=== PATIENT | male | born 1935 | race Caucasian/White ===

== ENCOUNTER 2018-09-29 20:31 | Inpatient (IN) | payer MEDICARE, OTHER ==
[~2018-09-29] VITALS: Ht 172.7 cm; Wt 79.5 kg
[2018-09-29 20:34] VITALS: Ht 172.7 cm; Wt 79.5 kg
[2018-09-29] MEDS ORDERED: SOD CHLORIDE 0.9% 1,000 ML IV STA (21:05)
--- NOTE | 2018-09-29 21:56 | ERD ---
ER Documentation Chief Complaint Chief Complaint BIB RA89 for abd swelling today, hx of metastatic ca HPI 82-year-old man brought in by family members for generalized weakness, dehydration, increased abdominal swelling times 2-3 days. He has a history of stage IV metastatic colon CA and has chronic daily abdominal pain and has had recent nausea and worsening abdominal swelling. Patient has had no blood per rectum or melena, no fevers or chills, no complaints of chest pain or shortness of breath. ROS All systems reviewed and are negative except as per history of present illness. Allergies Allergies: Coded Allergies: No Known Allergy (Unverified , 09/29/18) PMhx/Soc Metastatic colon carcinoma History of Surgery: No Anesthesia Reaction: No Hx Neurological Disorder: No Hx Respiratory Disorders: No Hx Cardiac Disorders: Yes (HTN, cholesterol, atrial fibrillation on xarelto) Hx Miscellaneous Medical Probl: Yes (hypothyroidism, prostate, colon CA w mets to liver) Hx Alcohol Use: No Hx Substance Use: No Hx Tobacco Use: No Smoking Status: Never smoker FmHx Family History: No diabetes Physical Exam Vitals Vital Signs Date Temp Pulse Resp B/P (MAP) Pulse Ox O2 O2 Flow FiO2 Time Delivery Rate 09/29/18 89 25 124/83 99 Nasal 3.0 22:10 (97) Cannula 09/29/18 Nasal 3 21:40 Cannula 09/29/18 97.4 100 24 142/80 94 20:34 (100) Physical Exam Const: Elderly, chronically debilitated man, appears dehydrated, afebrile HEENT: Dry mucous membranes, pink conjunctive, no cervical spine deformity, no neck rigidity Resp: Clear to auscultation bilaterally Cardio: Regular rate and rhythm, no murmurs Abd: Soft, protuberant, mid abdominal mass palpated consistent with progressive colon cancer, no guarding Skin: No petechiae or rashes Back: No midline or flank tenderness Ext: No cyanosis, or edema Neur: Awake and alert x1, moving all extremities, no focal deficits or facial asymmetry Psych: Normal Mood and Affect Result Diagram: 09/29/18210909/29/182109 Results 24 hrs Laboratory Tests Test 09/29/18 21:10 09/29/18 22:00 White Blood Count 14.3 10^3/ul Red Blood Count 4.26 10^6/ul Hemoglobin 11.9 g/dl Hematocrit 36.1 % Mean Corpuscular Volume 84.7 fl Mean Corpuscular Hemoglobin 27.9 pg Mean Corpuscular Hemoglobin Concent 33.0 g/dl Red Cell Distribution Width 14.6 % Platelet Count 496 10^3/UL Mean Platelet Volume 8.6 fl Immature Granulocytes % 0.500 % Neutrophils % 76.7 % Lymphocytes % 12.5 % Monocytes % 9.2 % Eosinophils % 1.0 % Basophils % 0.1 % Nucleated Red Blood Cells % 0.0 /100WBC Immature Granulocytes # 0.070 10^3/ul Neutrophils # 11.0 10^3/ul Lymphocytes # 1.8 10^3/ul Monocytes # 1.3 10^3/ul Eosinophils # 0.2 10^3/ul Basophils # 0.0 10^3/ul Nucleated Red Blood Cells # 0.0 10^3/ul Prothrombin Time 14.3 Sec Prothrombin Time Ratio 1.1 INR International Normalized Ratio 1.09 Activated Partial Thromboplast Time 39.7 Sec Sodium Level 140 mmol/L Potassium Level 4.7 mmol/L Chloride Level 104 mmol/L Carbon Dioxide Level 22 mmol/L Anion Gap 14 Blood Urea Nitrogen 43 mg/dl Creatinine 2.32 mg/dl Est Glomerular Filtrat Rate mL/min mL/min Glucose Level 114 mg/dl Calcium Level 9.3 mg/dl Total Bilirubin 0.1 mg/dl Direct Bilirubin 0.00 mg/dl Indirect Bilirubin 0.1 mg/dl Aspartate Amino Transf (AST/SGOT) 30 IU/L Alanine Aminotransferase (ALT/SGPT) 7 IU/L Alkaline Phosphatase 126 IU/L Troponin I 0.105 ng/ml Total Protein 6.8 g/dl Albumin 3.5 g/dl Globulin 3.30 g/dl Albumin/Globulin Ratio 1.06 Lipase 171 U/L Urine Color YELLOW Urine Clarity SLIGHTLY CLOUDY Urine pH 5.0 Urine Specific Russell 1.017 Urine Ketones NEGATIVE mg/dL Urine Nitrite NEGATIVE mg/dL Urine Bilirubin NEGATIVE mg/dL Urine Urobilinogen NEGATIVE mg/dL Urine Leukocyte Esterase NEGATIVE Michell/ul Urine Microscopic RBC 16 /HPF Urine Microscopic WBC 4 /HPF Urine Amorphous Crystals FEW /HPF Urine Bacteria FEW /HPF Urine Hemoglobin 2+ mg/dL Urine Glucose NEGATIVE mg/dL Urine Total Protein 2+ mg/dl Current Medications Medications Dose Sig/Chava Start Time Status Last (Trade) Ordered Route PRN Stop Time Admin Dose Reason Admin Sodium 1,000 ml @ Q1H STAT 09/29/18 DC 09/29/18 Chloride 1,000 mls/hr IV 21:05 21:20 09/29/18 22:04 Procedures/MDM IV line was established patient was placed on awake overnight monitor rhythm strip re vealed a sinus rhythm at about 90 bpm with upright P and T waves. Patient was afebrile I administered 1 L normal saline IV for dehydration. EKG performed, read by me revealed a normal sinus rhythm at 90 bpm, left axis deviation, PACs, narrow QRS complex, no concerning ST elevations or depression noted CT scan of the abdomen and pelvis without contrast was performed,sal, history of arrhythmia, history of COPD, history of heart failure, history of depression, schizoaffective disorder, anxiety disorder. CBC was unremarkable, electrolytes reveal acute kidney injury and dehydration with a BUN/creatinine 43/2.3, liver function tests normal, troponin negative, urinalysis negative for infection. Patient will be admitted to [facility] for continued hydration and medical management. Departure Diagnosis: Primary Impression: Colon carcinoma metastatic to liver Additional Impressions: Dehydration Weakness Acute kidney injury Ascites Ascites type: malignant Qualified Codes: R18.0 - Malignant ascites Condition: PANKAJ Kruse MD Sep 29, 2018 21:56
[2018-09-29] MEDS ORDERED: MAGNESIUM HYDROXIDE 30ML CUP PO STA (23:26)
[2018-09-29] MEDS ORDERED: HYDROCODONE/APAP (5/325) TAB PO PRN ×2 (23:30)
[2018-09-29] MEDS ORDERED: ONDANSETRON 4 MG INJ IV PRN (23:30)
[2018-09-29] MEDS ORDERED: NACL 0.9% 3 ML SYG IV SCH (23:30)
[2018-09-29] MEDS ORDERED: ACETAMINOPHEN 325 MG TAB PO PRN (23:30)
--- NOTE | 2018-09-29 23:30 | HP ---
Date/Time of Note Date/Time of Note DATE: 09/29/18 TIME: 23:30 Assessment/Plan VTE Prophylaxis Pharmacological prophylaxis: heparin Lines/Catheters IV Catheter Type (from Nrs): Peripheral IV Assessment/Plan Assessment/Plan 1. Metastatic colon cancer, with CT showing peritoneal carcinomatosis, metastases to the liver and pulmonary nodules as well as large ascites -Per ER physician, family interested in stopping chemo -Palliative care consult -Hospice eval -Patient has been made DNR/DNI 2. Abdominal distention/pain: See above -We will talk to IR if therapeutic paracentesis can be done. Will send sample to workup for SBP. If you #7 -Pain management 3. RAMSES versus CKD: CT shows hydroureteronephrosis, likely mass-effect on the ureter. Patient also with a history of enlarged prostate -Rey was placed with only 30-50 cc of urine output, then it was obstructed. Multiple attempts was unsuccessful. Bladder scan shows about 600 cc of urine -Urology consult 4. Obstructive uropathy: See #3 5. Hypothyroidism: Continue home med 6. Atrial fibrillation: On Xarelto 7. SIRS: With the leukocytosis and tachycardia: Likely reactive -UA negative -Chest x-ray and urine culture. If paracentesis is going to be done, will workup for SBP HPI/ROS Admit Date/Time Admit Date/Time Hx of Present Illness This is a 82-year-old male with a history of metastatic colon, A. fib on Xarelto, hypothyroidism, BPH who presented to ER complaining of abdominal pain/distention and generalized weakness. 2 of the patient's daughter was at the bedside who provided history as patient is not able to provide any history. They said he was diagnosed with cancer in 2017 and the last time he received oral chemo was about 6 months ago. She said she stopped giving him the meds after 3 doses because of the side effects. Patient has only been taking Ensure for the past 1 month, which daughter said was because of poor appetite. The last 4 days, a nurse was coming to his house to give him IV fluid. Daughter said she noticed that over the past 4 days his belly has been progressively more distended after he was started on IV fluid. Previously she said his belly was flat. When he presented to ER, vitals stable. Lab shows a WBC of 14,000, creatinine 2.3, BUN 43, hemoglobin almost 12. CT abdomen/pelvis shows the followin. The combination of findings most likely reflects stage IV metastatic colon cancer with multiple hepatic masses, visualized pulmonary nodules, peritoneal carcinomatosis and a large amount of malignant ascites. Consider consultation for paracentesis with cytologic analysis. 2. Partial right colectomy and anastomosis without bowel obstruction, diver ticular disease and constipation of the remaining colon is present. 3. In addition, there is mesenteric and sheryl hepatis lymphadenopathy that is presumably metastatic. 4. Right-sided hydroureteronephrosis without calculus is likely related to extrinsic impression upon the ureter by neoplastic disease. 5. Atherosclerotic calcification of the aorta and iliac systems is incidentally noted. 6. Diffuse degenerative changes of the thoracolumbar spine with anterolisthesis and central stenosis at L4-5 but no evidence of osseous metastasis. I discussed the CT findings and the patient overall poor prognosis. Family wants patient to be DNR/DNI and that they are interested in talking to hospice people. PMH/Family/Social Past Medical History Coded Allergies: No Known Allergy (Unverified , 09/29/18) Social History Smoking Status: Never smoker Exam/Review of Systems Vital Signs Vitals Vital Signs Date Temp Pulse Resp B/P (MAP) Pulse Ox O2 O2 Flow FiO2 Time Delivery Rate 09/29/18 91 20 117/69 96 Room Air 23:23 (85) 09/29/18 3.0 22:10 09/29/18 97.4 20:34 Exam Exam Constitutional: other (no acute distress) Head: normocephalic Respiratory: other (slight decreased at bases) Cardiovascular: regular rate and rhythm Gastrointestinal: soft Extremities: normal pulses PMH/Family/Social Past Medical History Medical History: other (see hpi) Coded Allergies: No Known Drug Allergy (Verified Allergy, Unknown, 05/26/16) Past Surgical History Past Surgical Hx: other (see hpi) Family History Significant Family History: no pertinent family hx Social History Alcohol Use: other Smoking Status: Unknown if ever smoked Drug Use: other Results Result Diagram: 09/29/18210909/29/182109 Results 24 hrs Laboratory Tests Test 09/29/18 21:10 09/29/18 22:00 White Blood Count 14.3 H Red Blood Count 4.26 L Hemoglobin 11.9 L Hematocrit 36.1 L Mean Corpuscular Volume 84.7 Mean Corpuscular Hemoglobin 27.9 L Mean Corpuscular Hemoglobin Concent 33.0 Red Cell Distribution Width 14.6 H Platelet Count 496 H Mean Platelet Volume 8.6 Immature Granulocytes % 0.500 H Neutrophils % 76.7 Lymphocytes % 12.5 L Monocytes % 9.2 Eosinophils % 1.0 Basophils % 0.1 Nucleated Red Blood Cells % 0.0 Immature Granulocytes # 0.070 H Neutrophils # 11.0 H Lymphocytes # 1.8 Monocytes # 1.3 H Eosinophils # 0.2 Basophils # 0.0 Nucleated Red Blood Cells # 0.0 Prothrombin Time 14.3 Prothrombin Time Ratio 1.1 INR International Normalized Ratio 1.09 Activated Partial Thromboplast Time 39.7 H Sodium Level 140 Potassium Level 4.7 Chloride Level 104 Carbon Dioxide Level 22 Anion Gap 14 H Blood Urea Nitrogen 43 H Creatinine 2.32 H Est Glomerular Filtrat Rate mL/min Glucose Level 114 Calcium Level 9.3 Total Bilirubin 0.1 L Direct Bilirubin 0.00 Indirect Bilirubin 0.1 Aspartate Amino Transf (AST/SGOT) 30 Alanine Aminotransferase (ALT/SGPT) 7 L Alkaline Phosphatase 126 H Troponin I 0.105 Total Protein 6.8 Albumin 3.5 Globulin 3.30 H Albumin/Globulin Ratio 1.06 Lipase 171 Urine Color YELLOW Urine Clarity SLIGHTLY CLOUDY A Urine pH 5.0 Urine Specific Rozel 1.017 Urine Ketones NEGATIVE Urine Nitrite NEGATIVE Urine Bilirubin NEGATIVE Urine Urobilinogen NEGATIVE Urine Leukocyte Esterase NEGATIVE Urine Microscopic RBC 16 H Urine Microscopic WBC 4 Urine Amorphous Crystals FEW A Urine Bacteria FEW A Urine Hemoglobin 2+ H Urine Glucose NEGATIVE Urine Total Protein 2+ H ANA PLAZA MD Sep 29, 2018 23:30
[2018-09-30] VITALS: BP 118/68; PULSE 92; RESP 18
[2018-09-30] MEDS: DEXTROSE 5%-0.45% NACL 1,000 ML IV SCH ×2 (00:30→13:30)
[2018-09-30] MEDS ORDERED: HALOPERIDOL 5 MG INJ IM ONE ×2 (01:00→03:00)
[2018-09-30] MEDS ORDERED: LORAZEPAM 2 MG INJ IV ONE (01:00)
[2018-09-30] MEDS ORDERED: LORAZEPAM 4 MG/ML VIAL IV ONE (01:00)
[2018-09-30] MEDS ORDERED: HYDROmorphONE 1 MG/ML SYG IV ONE (02:00)
[2018-09-30] MEDS: ALBUTEROL/IPRATROPIUM (NEB) 3 ML AMP HHN PRN ×2 (04:43→22:37)
[2018-09-30] MEDS ORDERED: METO-429 PO (07:58)
[2018-09-30] MEDS ORDERED: AMLO-218 PO (07:58)
[2018-09-30] MEDS ORDERED: LOSA100T15 PO (07:58)
[2018-09-30 08:29] VITALS: BP 130/89; PULSE 97; RESP 18
[2018-09-30] MEDS: MAGNESIUM HYDROXIDE 30ML CUP PO SCH (09:00)
--- NOTE | 2018-09-30 12:13 | CONS ---
DATE OF ADMISSION: 09/29/2018 DATE OF CONSULTATION: TYPE OF CONSULTATION: Nephrology. REASON FOR CONSULTATION: Acute kidney injury. PHYSICIAN REQUESTING CONSULT: Brian Plaza MD HISTORY OF PRESENT ILLNESS: This is an 82-year-old male with a past medical history of metastatic co janice cancer, history of AFib on Xarelto, history of BPH, presented to [facility] emergency ro om with complaints of abdominal pain, distention and generalized weakness. The patient's daughter pr ovided history, stated the patient was diagnosed with cancer in 2017. He last received chemotherapy approximately 6 months ago. The patient stopped taking chemotherapy secondary to side effects. The patient states that he has had poor appetite over the last several days and increasing abdominal dist ention. As a result, he came to the emergency room. Upon arrival, the patient had laboratory data w hich showed white count of 14,000, a BUN 43, creatinine 2.3, hemoglobin 12. CT abdomen and pelvis wa s performed in the emergency room which showed findings of stage IV metastatic cancer, partial colect perry with anastomosis. No bowel obstruction. The patient was also noted to have degenerative changes of the spine, right-sided hydroureteronephrosis without calculus possibly from extrinsic compression upon the ureter by inflammatory disease. In the emergency room, the patient was placed on IV fluids and admitted to med-surg. In terms of patient's renal history, the patient's family says he has no prior history of kidney dise ase. The patient is also noted to have decreased urinary output. There is no hemoptysis, hematemesi s, hematochezia. PAST MEDICAL HISTORY: As stated above, history of metastatic colon cancer, history of AFib, history of BPH, history of hypothyroidism. PAST SURGICAL HISTORY: Status post partial colectomy. FAMILY HISTORY: No family history of kidney disease. ALLERGIES: NONE. MEDICATIONS: Have been reviewed. REVIEW OF SYSTEMS: Unable to do adequate review of systems as the patient is altered. Pertinent pos itives as obtained by reviewing medical records, speaking to hospital staff, stated in HPI, otherwise negative. PHYSICAL EXAMINATION: VITAL SIGNS: Blood pressure is 118/58, respiration 18, pulse 92, temperature 98.3. HEENT: Head is normocephalic. NECK: Supple. HEART: Regular rate. LUNGS: Show diminished breath sounds at the base. ABDOMEN: Soft, distended, positive fluid wave. EXTREMITIES: Negative for clubbing, cyanosis. No edema. DERMATOLOGIC: No rashes. MUSCULOSKELETAL: No joint effusion. NEUROLOGIC: Limited exam due to lack of patient's cooperation. LABORATORY DATA: The patient's urinalysis shows positive hematuria, no pyuria. Sodium 141, BUN 39, creatinine 2.23. White count 14.9, hemoglobin 9.7, platelet count 46. IMAGING STUDIES: Have been reviewed. ASSESSMENT AND PLAN: This is an 82-year-old male who presents with: 1. Nonoliguric acute kidney injury with unknown baseline creatinine. Etiology is likely multifactor ial secondary to obstructive uropathy due to metastatic disease. The patient's CT scan shows evidenc e of right hydroureter, possible volume depletion, hemodynamics, possible tubular injury. Plan at th is point is to check a renal ultrasound to further evaluate for possible hydronephrosis. We will con tinue the patient on IV hydration. We will repeat urinalysis, check urine electrolytes. Monitor str ict I's and O's. I agree with getting urology consult for Rey catheter placement and further evalu ation of hydronephrosis. Otherwise, continue supportive care, renally dose all meds, avoid nephrotox ins. 2. Obstructive uropathy with possible right-sided hydroureteronephrosis. Etiology is likely from un derlying malignancy. We will continue to monitor. Follow up serologies. 3. Anemia. Monitor hemoglobin and hematocrit levels. 4. Mineral bone disorder. Monitor calcium and phosphorus levels. 5. Abdominal pain and distention, likely secondary to ascites. Consider a therapeutic paracentesis. 6. Metastatic colon cancer. Continue to monitor. Defer to primary team. Consider hospice care. 7. Hypothyroidism. Continue Synthroid. 8. Atrial fibrillation. Continue medical management. 9. Systemic inflammatory response syndrome, rule out sepsis. Continue follow up cultures. Consider empiric antibiotics. Rule out spontaneous bacterial peritonitis. Thank you, Dr. Plaaz, for this interesting consult. It will be a pleasure to follow patient with you throughout the hospital course. Dictated By: LEI HARRY/LARRY Conf#: [id number] DID#: [id number] CC: KENISHA TORIBIO; BRIAN PLAZA MD;*End*
--- NOTE | 2018-09-30 12:46 | CONS ---
Date/Time of Note Date/Time of Note DATE: 09/30/18 TIME: : Assessment/Plan Assessment/Plan Chief Complaint/Hosp Course 82-year-old male has a history of metastatic colon, atrial fibrillation on Xarelto, hypothyroidism presented to ER complaining of abdominal pain/distention and generalized weakness. The patient's family were at the bedside and provided history as patient is not able to provide any history. They said he was diagnosed with colon cancer in 2017 and the last time he received oral chemo was about 6 months ago. The daughter stopped giving him the meds after 3 doses because of the side effects. Patient has only been taking Ensure for the past 1 month, which daughter said was because of poor appetite after admission the patient was found to have a large ascites and attempt to insert a Rey catheter was not successful therefore a urological consultation was requested according to the family the patient has undergone laser treatment of his prostate about 10 years earlier. Reviewing his CT scan the prostate is not large. He does have right hydronephrosis secondary to the right ureter being encased by tumor. I tried to insert a 16 [place] coud catheter after I prepped the genital area and gave him 5 mL of 2% lidocaine jelly for local anesthesia. It met the resistance at the bladder neck. Then I tried the 14 [place] coud catheter and had the same problem. The patient had already voided as his bed was wet when I saw him. The bladder scan is not accurate on this patient as it will pick the ascites rather than the bladder volume. I looked at his CAT scan and that does not show an enlarged prostate and also he had no urinary retention. I discussed with the family who were at his bedside the options one is to leave him alone and use a condom catheter on him and the second option would be to do urethral dilatation with filiforms and followers. I thought that would be done if he goes into retention and not able to urinate therefore the recommendation for now would be to leave him alone use a condom catheter for him and hopefully he will urinate without any catheter. As far as the right hydronephrosis is secondary to the ureteral encasement by the tumor. And that could be managed by cystoscopy and insertion of right ureteral JJ stent which would need to be replaced every 3 months. With his meta static disease and other medical problem I thought this should be left alone and keep the patient comfortable especially that the family decided for DNR. Consultation Date/Type/Reason Admit Date/Time September 29, 2018 Date of Consultation: Sep 30, 2018 Type of Consult Urology Reason for Consultation Difficulty inserting a Rey catheter Requesting Provider: LEI MCKEON DO Hx of Present Illness 82-year-old male has a history of metastatic colon, atrial fibrillation on Xarelto, hypothyroidism presented to ER complaining of abdominal pain/distention and generalized weakness. The patient's family were at the bedside and provided history as patient is not able to provide any history. They said he was diagnosed with colon cancer in 2017 and the last time he received oral chemo was about 6 months ago. The daughter stopped giving him the meds after 3 doses because of the side effects. Patient has only been taking Ensure for the past 1 month, which daughter said was because of poor appetite after admission the patient was found to have a large ascites and attempt to insert a Rey catheter was not successful therefore a urological consultation was requested according to the family the patient has undergone laser treatment of his prostate about 10 years earlier. Reviewing his CT scan the prostate is not large. He does have right hydronephrosis secondary to the right ureter being encased by tumor. Subjective hx not possible: pt non-verbal Constitutional: no complaints, other (Cachectic) Eyes: no complaints ENT: no complaints Respiratory: no complaints Cardiovascular: no complaints Gastrointestinal: pain Genitourinary: other (He just voided in the bed and the urine is clear) Musculoskeletal: no complaints Skin: no complaints Neurologic: no complaints Endocrine: no complaints Lymphatic: no complaints Psychological: no complaints Past Medical History Medical History: cancer, hypothyroid, renal disease, other (Atrial fi brillation) Medications Current Medications IV Flush (NS 3 ml) 3 ml PER PROTOCOL IV ; Start 09/29/18 at 23:30 Ondansetron HCl (Zofran Inj) 4 mg Q6H PRN IV NAUSEA AND/OR VOMITING; Start 09/29/18 at 23:30 Acetaminophen (Tylenol Tab) 650 mg Q6H PRN PO PAIN LEVEL 1-3 OR FEVER; Start 09/29/18 at 23:30 Acetaminophen/ Hydrocodone Bitart ([place] (5/325)) 1 tab Q6H PRN PO MODERATE PAIN LEVEL 4-6; Start 09/29/18 at 23:30 Acetaminophen/ Hydrocodone Bitart ([place] (5/325)) 2 tab Q6H PRN PO SEVERE PAIN LEVEL 7-10; Start 09/29/18 at 23:30 Famotidine (Pepcid Iv) 20 mg DAILY IV ; Start 09/30/18 at 09:00 Albuterol/ Ipratropium (Duoneb) 3 ml Q2H RESP THERAPY PRN HHN SHORTNESS OF BREATH Last administered on 09/30/18at 04:43; Admin Dose 3 ML; Start 09/29/18 at 23:30 Magnesium Hydroxide (Milk Of Mag) 30 ml DAILY PO ; Start 09/30/18 at 09:00 Dextrose/Sodium Chloride 1,000 ml @ 75 mls/hr [id number] IV ; Start 09/30/18 at 00:30 Allergies: Coded Allergies: No Known Allergy (Unverified , 09/29/18) Past Surgical History Past Surgical Hx: bowel resection, other (Laser surgery on the prostate many years ago.) Social History Alcohol Use: none Smoking Status: Never smoker Exam/Review of Systems Vital Signs Vitals Vital Signs Date Temp Pulse Resp B/P (MAP) Pulse Ox O2 O2 Flow FiO2 Time Delivery Rate 09/30/18 98.2 97 18 130/89 100 Nasal 08:29 (103) Cannula 09/30/18 4.0 08:00 Intake and Output 09/29/18 09/29/18 09/30/18 1515:00 23:00 07:00 IntakeIntake Total 1000 ml OutputOutput Total 100 ml BalanceBalance [address] scan of the abdomen and pelvis showed: 1. The combination of findings most likely reflects stage IV metastatic colon cancer with multiple hepatic masses, visualized pulmonary nodules, peritoneal carcinomatosis and a large amount of malignant ascites. Consider consultation for paracentesis with cytologic analysis. 2. Partial right colectomy and anastomosis without bowel obstruction, diverticular disease and constipation of the remaining colon is present. 3. In addition, there is mesenteric and sheryl hepatis lymphadenopathy that is presumably metastatic. 4. Right-sided hydroureteronephrosis without calculus is likely related to extrinsic impression upon the ureter by neoplastic disease. 5. Atherosclerotic calcification of the aorta and iliac systems is incidentally noted. 6. Diffuse degenerative changes of the thoracolumbar spine with anterolisthesis and central stenosis at L4-5 but no evidence of osseous metastasis. Constitutional: alert, frail Psych: no complaints Head: normocephalic Eyes: nl conjunctiva ENMT: nl external ears & nose Neck: supple, non-tender Respiratory: normal air movement Cardiovascular: No jugular venous distention (JVD) Gastrointestinal: soft, distended Genitourinary - Male: nl penis, nl scrotum Musculoskeletal: nl extremities to inspection; No joint tenderness Extremities: No calf tenderness Neurological: nl mental status Skin: nl NICHOLAS Bell MD Sep 30, 2018 12:37
--- NOTE | 2018-09-30 13:27 | PN ---
Date/Time of Note Date/Time of Note DATE: 09/30/18 TIME: 12:57 Assessment/Plan VTE Prophylaxis Risk score (from Ns)>0 risk: 4 SCD applied (from Ns): Yes Pharmacological prophylaxis: other Lines/Catheters IV Catheter Type (from Nrs): Saline Lock Urinary Cath still in place: No Assessment/Plan Hospital Course S: Patient seen by urology and renal teams. Waiting to be seen by speech team. Family stating they are now interested in hospice services. O: VS - see below PE: Gen: Elderly, chronically debilitated man, appears dehydrated, afebrile HEENT: Dry mucous membranes, pink conjunctive, no cervical spine deformity, no neck rigidity NECK: supple Resp: Clear to auscultation bilaterally Cardio: Regular rate and rhythm, no murmurs Abd: Soft, protuberant, mid abdominal mass palpated consistent with progressive colon cancer, no guarding Ext: No cyanosis, or edema Neur: Awake and alert x1, moving all extremities, no focal deficits or facial asymmetry Assessment/Plan: 82 M p/w: 1. Metastatic colon cancer, with CT showing peritoneal carcinomatosis, metastases to the liver and pulmonary nodules as well as large ascites- apparently, family interested in stopping chemo -We will consider palliative care consult and likely hospice eval -Monitor, again patient has been made DNR/DNI 2. Abdominal distention/pain: See above -large amount of ascites, likely malignant, found on admission. Patient also with leukocytosis, cannot rule out SBP -Were considering for IR to perform paracentesis -however it appears now family wants to pursue hospice services so we will go that route -Continue pain management 3. RAMSES versus CKD: CT shows hydroureteronephrosis, likely mass-effect on the ureter. Patient also with a history of enlarged prostate-Rey was placed with only 30-50 cc of urine output, then it was obstructed. Multiple attempts was unsuccessful. Bladder scan shows about 600 cc of urine -Appreciate urology consult, continue condom catheter for now, monitor urine output 4. Obstructive uropathy: See #3 5. Hypothyroidism: Continue home med 6. Atrial fibrillation: On Xarelto 7. SIRS: With the leukocytosis and tachycardia: Likely reactive-UA negative -Monitor, follow-up results of chest x-ray and urine culture. Dispo: manager resort consult/order has been placed for inpatient hospice evaluation. Exam/Review of Systems Vital Signs Vitals Vital Signs Date Temp Pulse Resp B/P (MAP) Pulse Ox O2 O2 Flow FiO2 Time Delivery Rate 09/30/18 98.2 97 18 130/89 100 Nasal 08:29 (103) Cannula 09/30/18 4.0 08:00 Intake and Output 09/29/18 09/29/18 09/30/18 1515:00 23:00 07:00 IntakeIntake Total 1000 ml OutputOutput Total 100 ml BalanceBalance 900 ml KENISHA TORIBIO Sep 30, 2018 13:08
[2018-09-30 14:41] VITALS: BP 143/85; PULSE 110; RESP 18
[2018-09-30] MEDS: HYDROmorphONE 1 MG/ML SYG IV PRN ×2 (14:53→20:43)
[2018-09-30] MEDS: FAMOTIDINE 20 MG INJ IV SCH (18:10)
[2018-09-30 19:49] VITALS: BP 143/73; PULSE 109; RESP 18
[2018-10-01] MEDS: ALBUTEROL/IPRATROPIUM (NEB) 3 ML AMP HHN SCH ×3 (01:45→07:51)
[2018-10-01] MEDS: ACETYLCYSTEINE 20% 4 ML VIAL NEB SCH ×2 (01:46→07:51)
[2018-10-01 02:13] VITALS: BP 130/79; PULSE 129; RESP 19
[2018-10-01] MEDS: HYDROmorphONE 1 MG/ML SYG IV PRN ×2 (02:24→08:26)
[2018-10-01] MEDS: DEXTROSE 5%-0.45% NACL 1,000 ML IV SCH (02:29)
[2018-10-01] MEDS ORDERED: GUAIFENESIN 20 MG/ML 5ML CUP ONE ×2 (08:17→08:23)
[2018-10-01] MEDS ORDERED: GUAIFENESIN/DM 5ML CUP ONE (08:18)
[2018-10-01] MEDS: FAMOTIDINE 20 MG INJ IV SCH (08:26)
[2018-10-01] MEDS: MAGNESIUM HYDROXIDE 30ML CUP PO SCH (08:26)
[2018-10-01] MEDS ORDERED: GUAIFENESIN 20 MG/ML 5ML CUP PO PRN (08:30)
[2018-10-01 08:43] VITALS: BP 134/81; PULSE 118; RESP 18
--- NOTE | 2018-10-01 11:42 | PN ---
DATE: 10/01/2018 SUBJECTIVE: The patient is fin rail condition. No other events noted. OBJECTIVE: VITAL SIGNS: Blood pressure is 130/79, respiration 19, pulse 78, temperature 99.1. HEENT: Head is normocephalic. NECK: Supple. HEART: Regular rate. LUNGS: Show diminished breath sounds at the base. ABDOMEN: Soft, nontender to palpation without rebound or guarding. EXTREMITIES: Negative for clubbing, cyanosis, no edema. DERMATOLOGIC: No rashes. MUSCULOSKELETAL: No joint effusions. NEUROLOGIC: No change in exam. MEDICATIONS: The patient's medications have been reviewed. LABORATORY DATA: Patient's sodium 144, potassium 4.9, chloride 109, BUN 36, creatinine 2.11. White count 24.4, hemoglobin is 11.9, platelet count is 533. ASSESSMENT AND PLAN: 1. Nonoliguric acute kidney injury with unknown baseline creatinine. Etiology is multifactorial sec ondary to obstructive uropathy of the right hydroureter, volume depletion, hemodynamics. The patient 's renal function has improved with IV hydration in the last 24 hours. Renal ultrasound was reviewed , continues to show moderate right-sided hydronephrosis. Plan at this point would be to continue gen tle IV hydration. Continue supportive care, renally dose all meds. Per urology given the patient's metastatic disease, aggressive therapy will not be performed for right-sided hydronephrosis. Will mo nitor closely. 2. Obstructive uropathy secondary to right-sided hydroureteronephrosis. Etiology is likely due to e ncasement from malignancy. Per urology nonaggressive measures will be taken. We will continue to mo nitor. 3. Anemia. Monitor hemoglobin and hematocrit levels. 4. Mineral bone disorder, monitor calcium and phosphorus levels. 5. Abdominal pain, distention, likely from ascites. Consider therapeutic paracentesis. 6. Metastatic lung cancer. The patient is DNR. Consider hospice care. 7. Hypothyroidism. Continue Synthroid. 8. Atrial fibrillation. Continue medical management. 9. Systemic inflammatory response syndrome, possible sepsis. Rule out sepsis. The patient's white count is worsening, consider starting empiric antibiotic therapy, continue IV hydration. Dictated By: LEI HARRY/LARRY Conf#: [id number] DID#: [id number] CC: ANA PLAZA MD; MADIE TORRES MD;*[facility]*
[2018-10-01] MEDS ORDERED: ACETAMINOPHEN 650 MG SUPP PR PRN (13:00)
[2018-10-01] MEDS ORDERED: HYDROmorphONE 0.2 MG/ML PCA IV SCH (13:00)
[2018-10-01] MEDS ORDERED: LORAZEPAM 4 MG/ML VIAL IV PRN ×2 (13:00→15:00)
[2018-10-01] MEDS ORDERED: HYDROmorphONE 1 MG/ML SYG IV PRN ×3 (13:00→14:00)
[2018-10-01] MEDS ORDERED: BISACODYL 10 MG SUPP PR PRN (13:00)
[2018-10-01] MEDS ORDERED: HYDROmorphONE 50 MG in DEXTROSE 5% 45 ML IV SCH (13:30)
--- NOTE | 2018-10-01 14:24 | PN ---
Date/Time of Note Date/Time of Note DATE: 10/01/18 TIME: 14:20 Assessment/Plan VTE Prophylaxis Risk score (from Ns)>0 risk: 5 SCD applied (from Ns): Yes SCD contraindicated: low risk/ambulating Pharmacological prophylaxis: NA/contraindicated Pharm contraindication: other (hospice) Lines/Catheters IV [facility]from [facility] Peripheral IV Urinary Cath still in place: No Assessment/Plan Assessment/Plan 82 yo man presents with metastatic colon cancer, abdominal distension, RAMSES. # Metastatic colon cancer, with CT showing peritoneal carcinomatosis, metastases to the liver and pulmonary nodules as well as large ascites - Likely the cause of abdominal distension; also RAMSES due to ureteral compression. - Plan for inpatient hospice per family's wishes. #Abdominal distension/pain - Therapeutic paracentesis would likely cause more risk than benefit. - IV dilaudid prn #Cough - May be from atelectasis from abdominal distension. Patient has very weak cough. - Opioids as above - Guaifenasin syrup. If relief is incomplete will try codeine syrup. # Atrial fibrillation: - Will stop home Xarelto Result Diagram: 10/01/18 0429 10/01/18 0429 Results 24hrs Laboratory Tests Test 10/01/18 04:29 White Blood Count 24.4 #H Red Blood Count 4.28 L Hemoglobin 11.9 L Hematocrit 36.6 L Mean Corpuscular Volume 85.5 Mean Corpuscular Hemoglobin 27.8 L Mean Corpuscular Hemoglobin Concent 32.5 Red Cell Distribution Width 14.8 H Platelet Count 533 H Mean Platelet Volume 8.6 Immature Granulocytes % 0.700 H Neutrophils % 91.2 H Lymphocytes % 2.6 L Monocytes % 5.3 Eosinophils % 0.0 Basophils % 0.2 Nucleated Red Blood Cells % 0.0 Immature Granulocytes # 0.170 H Neutrophils # 22.3 H Lymphocytes # 0.6 L Monocytes # 1.3 H Eosinophils # 0.0 Basophils # 0.1 Nucleated Red Blood Cells # 0.0 Sodium Level 144 Potassium Level 4.9 Chloride Level 109 Carbon Dioxide Level 19 L Anion Gap 16 H Blood Urea Nitrogen 36 H Creatinine 2.11 H Est Glomerular Filtrat Rate mL/min Glucose Level 172 Calcium Level 9.9 Phosphorus Level 4.0 Magnesium Level 2.3 Subjective 24 Hr Interval Summary Free Text/Dictation Patient has dry cough today. Incomplete resolution with guaifenasin syrup. Otherwise pain adequately controlled. His daughter is at bedside; I discussed plan of inpatient hospice with her and she is in agreement. Exam/Review of Systems Vital Signs Vitals Vital Signs Date Temp Pulse Resp B/P (MAP) Pulse Ox O2 O2 Flow FiO2 Time Delivery Rate 10/01/18 98.5 118 18 134/81 99 High Flow 08:43 (98) 10/01/18 3.0 08:00 Intake and Output 09/30/18 09/30/18 10/01/18 1515:00 23:00 07:00 IntakeIntake Total 180 ml 360 ml 900 ml BalanceBalance 180 ml 360 ml 900 ml Exam Gen: Elderly, chronically debilitated man, appears dehydrated, afebrile HEENT: Dry mucous membranes, pink conjunctive, no cervical spine deformity, no neck rigidity NECK: supple Resp: Clear to auscultation bilaterally Cardio: Regular rate and rhythm, no murmurs Abd: Soft, protuberant, mid abdominal mass palpated consistent with progressive colon cancer, no guarding Ext: No cyanosis, or edema Medications Medications Current Medications IV Flush (NS 3 ml) 3 ml PER PROTOCOL IV ; Start 09/29/18 at 23:30 Albuterol/ Ipratropium (Duoneb) 3 ml Q2H RESP THERAPY PRN HHN SHORTNESS OF BREATH Last administered on 09/30/18at 22:37; Admin Dose 3 ML; Start 09/29/18 at 23:30 Lorazepam (Ativan) 0.5 mg Q2 PRN IV AGITATION/ANXIETY; Start 10/01/18 at 13:00 Acetaminophen (Tylenol Supp) 650 mg Q6H PRN AL FEVER; Start 10/01/18 at 13:00 Bisacodyl (Dulcolax Supp) 10 mg DAILY PRN AL CONSTIPATION; Start 10/01/18 at 13:00 Atropine Sulfate (Atropine 1% Oph) 2 drop Q2H PRN SL PRN SECRETIONS; Start 10/01/18 at 13:00 Hydromorphone HCl 50 mg/Dextrose 50 ml @ 0 mls/hr TITRATE IV Last administered on 10/01/18at 14:17; Admin Dose 0.2 MLS/HR; Start 10/01/18 at 13:30 Hydromorphone HCl (Dilaudid) 1 mg Q10MIN PRN IV SEVERE PAIN LEVEL 7-10 Last administered on 10/01/18at 14:17; Admin Dose 1 MG; Start 10/01/18 at 14:00 Ondansetron HCl (Zofran Inj) 4 mg Q4H PRN IV NAUSEA AND/OR VOMITING; Start 10/01/18 at 14:30 MADIE TORRES MD Oct 01, 2018 14:24
[2018-10-01] MEDS ORDERED: ONDANSETRON 4 MG INJ IV PRN (14:30)
[2018-10-01] MEDS: HYDROmorphONE 50 MG in DEXTROSE 5% 45 ML IV SCH (15:11)
[2018-10-01] MEDS: ATROPINE 1% 5 ML OPH SL PRN ×2 (15:41→19:47)
[2018-10-02] MEDS: ATROPINE 1% 5 ML OPH SL PRN ×6 (01:34→16:30)
[2018-10-02] MEDS ORDERED: SCOPOLAMINE 1.5 MG PATCH TRANSDERM PRN (07:00)
--- NOTE | 2018-10-02 11:37 | PN ---
DATE: 10/02/2018 SUBJECTIVE: The patient is on hospice and on Dilaudid drip. No other events noted. OBJECTIVE: VITAL SIGNS: 134/81, respiration 18, pulse 118, temperature 98.4. HEENT: Head is normocephalic. NECK: Supple. HEART: Regular rate. LUNGS: Show diminished breath sounds at the base. ABDOMEN: Soft, nontender to palpation. No rebound or guarding. EXTREMITIES: Negative for clubbing, cyanosis, no edema. NEUROLOGIC: No change in exam. LABORATORY DATA: Reviewed. ASSESSMENT AND PLAN: 1. Nonoliguric acute kidney injury. 2. Obstructive uropathy secondary to right hydroureter. 3. Anemia. 4. Mineral bone disorder. 5. Abdominal pain. 6. Metastatic colon cancer. 7. Hypothyroidism. 8. Atrial fibrillation. 9. Systemic inflammatory response syndrome, possible sepsis. PLAN: The patient is on hospice care and receiving Dilaudid drip. We will sign off. Dictated By: LEI MCKEON DO NR/NTS Conf#: [id number] DID#: [id number] CC: MADIE TORRES MD; ANA PLAZA MD;*EndCC*
--- NOTE | 2018-10-02 11:37 | PN ---
Date/Time of Note Date/Time of Note DATE: 10/02/18 TIME: 11:34 Assessment/Plan VTE Prophylaxis Risk score (from Nsg)>0 risk: 8 SCD applied (from Nsg): No SCD contraindicated: low risk/ambulating Pharmacological prophylaxis: other (hospice) Lines/Catheters IV Catheter Type (from Nrsg): Peripheral IV Urinary Cath still in place: No Assessment/Plan Assessment/Plan 82 yo man presents with metastatic colon cancer, abdominal distension, RAMSES. # Metastatic colon cancer, with CT showing peritoneal carcinomatosis, metastases to the liver and pulmonary nodules as well as large ascites - Likely the cause of abdominal distension; also RAMSES due to ureteral compression . - Plan for inpatient hospice per family's wishes. - Dilaudid gtt ordered by [facility] palliative care doc. #Abdominal distension/pain - Therapeutic paracentesis would likely cause more risk than benefit. #Cough - May be from atelectasis from abdominal distension. Patient has very weak cough. - Opioids as above - Guaifenasin syrup. If relief is incomplete will try codeine syrup. # Atrial fibrillation: - Will stop home Xarelto Result Diagram: 10/01/1842810/01/18428 Subjective 24 Hr Interval Summary Free Text/Dictation Dilaudid gtt was ordered yesterday by Holly Watson. The is in agreement with this. Patient is nonresponsive with copious oral secretions in mouth causing coarse respirations. Exam/Review of Systems Vital Signs Vitals Vital Signs Date Temp Pulse Resp B/P (MAP) Pulse Ox O2 O2 Flow FiO2 Time Delivery Rate 10/02/18 Nasal 3.0 08:00 Cannula 10/01/18 98.5 118 18 134/81 99 08:43 (98) Intake and Output 10/01/18 10/01/18 10/02/18 1515:00 23:00 07:00 IntakeIntake Total 200 ml 1.7 ml 21.5 ml BalanceBalance 200 ml 1.7 ml 21.5 ml Exam Gen: Elderly, chronically debilitated man, appears dehydrated, afebrile HEENT: Dry mucous membranes, pink conjunctive, no cervical spine de formity, no neck rigidity NECK: supple Resp: Coarse upper airway breath sounds. Cardio: Regular rate and rhythm, no murmurs Abd: Soft, protuberant, mid abdominal mass palpated consistent with progr essive colon cancer, no guarding Ext: No cyanosis, or edema Medications Medications Current Medications IV Flush (NS 3 ml) 3 ml PER PROTOCOL IV ; Start 09/29/18 at 23:30 Albuterol/ Ipratropium (Duoneb) 3 ml Q2H RESP THERAPY PRN HHN SHORTNESS OF BREATH Last administered on 09/30/18at 22:37; Admin Dose 3 ML; Start 09/29/18 at 23:30 Acetaminophen (Tylenol Supp) 650 mg Q6H PRN MA FEVER; Start 10/01/18 at 13:00 Bisacodyl (Dulcolax Supp) 10 mg DAILY PRN MA CONSTIPATION; Start 10/01/18 at 13:00 Atropine Sulfate (Atropine 1% Oph) 2 drop Q2H PRN SL PRN SECRETIONS Last administered on 10/02/18at 11:23; Admin Dose 2 DROP; Start 10/01/18 at 13:00 Ondansetron HCl (Zofran Inj) 4 mg Q4H PRN IV NAUSEA AND/OR VOMITING; Start 10/01/18 at 14:30 Lorazepam (Ativan) 0.5 mg Q2H PRN IV AGITATION/ANXIETY; Start 10/01/18 at 15:00 Hydromorphone HCl 50 mg/Dextrose 50 ml @ 0 mls/hr TITRATE IV Last administered on 10/01/18at 15:11; Admin Dose 0.5 MLS/HR; Start 10/01/18 at 15:00 Scopolamine (Transderm-Scop) 1 patch Q72H PRN TRANSDERM PRN SECRETIONS Last administered on 10/02/18at 08:01; Admin Dose 1 PATCH; Start 10/02/18 at 07:00 MADIE TORRES MD Oct 02, 2018 11:37
[2018-10-02] MEDS: HYDROmorphONE 50 MG in DEXTROSE 5% 45 ML IV SCH (12:37)
[2018-10-02] MEDS ORDERED: GLYCOPYRROLATE 0.4 MG INJ IV PRN (13:00)
--- NOTE | 2018-10-02 13:56 | HP ---
DATE OF ADMISSION: 09/29/2018 HISTORY OF PRESENT ILLNESS: Mr. Gutierrez is an 82-year-old male with past medical history significant for metastatic colon cancer initially diagnosed in 2016, status post partial right colectomy and anastomosis with subsequent chemotherapy, which was stopped about 6 months ago due to side effects and with multiple hepatic metastases to the liver, visualized pulmonary nodules, peritoneal carcinomatosis and large amount of ascites, who was admitted on 09/29/2018 for abdominal distention and generalized weakness as per daughter, Alexandra, who is currently at the bedside. The patient has not been eating anything much for the past 1 month except for Ensure and IV fluids which he was receiving at home. Currently, his condition has progressively worsened. He is currently unresponsive and he has been admitted to the general inpatient hospice unit yesterday that is 10/01/2018. He has been started on Dilaudid drip at 0.5 mg per hour with titration by 0.5 mg every hour as needed which has been subsequently increased to about 1.5 mg per hour. Currently, he has been having excess secretions for which he is currently on atropine 2% drops sublingual every 2 hours as needed, which he has been receiving almost every 2 hours. Scopolamine patch has also been placed today morning, but he still has audible gurgling and appears to be in discomfort in regards to that. The patient is also being suctioned with thick mucus being obtained. He does not appear to be in any pain or respiratory distress and that is currently being managed with the increase in Dilaudid drip. He does not have any skin issues. He has been having intermittent urine output, small amount since yesterday about 3 to 4 times. He also had a bowel movement yesterday. Currently, the patient appears to be transitioning and is currently appropriate for [facility] level of care. SOCIAL HISTORY: No history of any smoking. FAMILY HISTORY: Unremarkable. PAST MEDICAL HISTORY: History of colon cancer diagnosed in 2016 as per the daughter, status post partial right colectomy, history of atrial fibrillation on Xarelto, hypothyroidism, BPH, Colon cancer metastatic metastatic to the liver, lungs, peritoneal carcinomatosis and large amount of ascites as well as right- sided hydroureteronephrosis with calculus due to extrinsic compression upon the ureter by neoplastic disease. PAST SURGICAL HISTORY: Partial right colectomy. ALLERGIES: NO KNOWN DRUG ALLERGIES. MEDICATIONS: He is currently on the following medications: 1. Scopolamine patch every 72 hours, which has been placed today morning. 2. Ativan 0.5 mg IV every 2 hours as needed. 3. Dilaudid 0.5 mg drip per hour with orders to titrate up by 0.5 mg every hour as needed. 4. Zofran 4 mg every 4 hours as needed. 5. Tylenol suppository 650 mg every 6 hours as needed. 6. Bisacodyl suppository 10 mg daily as needed. 7. Atropine sulfate 1% drops 2 drops sublingual every 2 hours as needed, which he has been taking almost every 2 hours. 8. DuoNeb inhalation every 2 hours as needed for shortness of breath. PHYSICAL EXAMINATION: VITAL SIGNS: The patient is afebrile, heart rate 112 per minute and tachycardic, respirations 20 per minute and regular, currently on nasal cannula 3 liters. GENERAL: The patient is an elderly male who is lying comfortably in bed with audible gurgling. HEENT: Pupils are 2 mm, sluggish reaction to light. Mouth with dry mucous membranes. NECK: Supple without any jugular venous distention or lymphadenopathy. HEART: S1, S2 present normally, tachycardic without any murmurs, rubs or gallops. PULMONARY: Coarse breath sounds bilaterally with audible gurgling. ABDOMEN: Distended with ascites positive, nontender. EXTREMITIES: No pedal edema. Pedal pulses are positive. No mottling noted. SKIN: No lesions or sores reported. NEUROLOGIC: The patient is currently unresponsive to verbal and tactile stimuli. ASSESSMENT AND PLAN: Mr. Gutierrez is an 82-year-old male with past medical history significant for metastatic colon cancer metastatic to the liver, lungs, peritoneal carcinomatosis and large amount of malignant ascites and other comorbidities including atrial fibrillation, hypothyroidism, benign prostatic hypertrophy, right-sided hydroureteronephrosis due to extensive compression upon the ureter by neoplastic disease. He is also status post partial right colectomy and anastomosis as well as chemotherapy about 6 months ago who was admitted on 09/29/2018 with abdominal distention and pain, generalized weakness, decreased p.o. intake. He has since been admitted to the inpatient hospice unit due to his worsening condition to manage his symptoms better which include respiratory distress, pain and secretions. PLAN: 1. For pain and respiratory distress, the patient has been started on Dilaudid drip yesterday 0.5 mg per mg per hr and it has currently been titrated to 1.5 mg by this morning. Currently, he appears to be comfortable at this rate, so we recommend to continue to monitor. He does not appear to be in any pain. 2. Excessive secretions. The patient has been having excess secretions since yesterday and he is currently on atropine drops 2% sublingual every 2 hours as needed, which he has been receiving almost every 2 hours. He also has a scopolamine patch placed earlier today morning. He has also been receiving intermittent suctioning which appears to be helping him. We would recommend to order IV glycopyrrolate 0.2 mg every 4 hours as needed for excess secretions. We will also recommend to make the atropine 1% drops sublingual every 2 hours routinely. He also has other comfort medications including lorazepam 0.5 mg IV every 2 hours as needed as well as Tylenol suppository as needed, but he has not received any recently, so I recommend continue to monitor. The patient is currently DNR. All of the questions and concerns of the patient's several family members including daughter, Marine, sister and brother have been addressed and answered and they are aware that [facility] is available 24 hours a day for any questions or change in condition. I coordinated the plan of care with the nurses, Audrey and charge nurse, Kelly. Dictated By: NELSON WATKINS MD PK/NTS Conf#: [id number] DID#: [id number] CC: MADIE TORRES MD; ANA PLAZA MD;*EndCC* MTDD
--- NOTE | 2018-10-22 18:50 | DES ---
DATE OF ADMISSION: 09/29/2018 DATE OF : 10/02/2018 Date of admission to [facility] hospice unit 10/01/2018. PRIMARY DIAGNOSES: 1. History of metastatic colon cancer diagnosed in 2016, status post partial right colectomy, with metastases of the colon cancer to the lungs, liver, peritoneal carcinomatosis with large amount of ascites as well as right-sided hydroureteronephrosis with a calculus due to extrinsic compression upon the ureter by a neoplastic disease. 2. History of atrial fibrillation on Xarelto. 3. Hypothyroidism. 4. Benign prostatic hyperplasia HOSPITAL COURSE: Mr. Gutierrez is an 82-year-old male with past medical history significant for metastatic colon cancer initially diagnosed in 2016, status post partial right colectomy and anastomosis with subsequent chemotherapy, which was stopped about six months ago due to side effects and with multiple hepatic metastases to the liver, visualized pulmonary nodules, peritoneal carcinomatosis, and a large amount of ascites who was admitted to the hospital on 09/29/2018 for abdominal distention and generalized weakness. As per daughterAlexandra, his condition has continued to worsen ad he has since been admitted to the general inpatient hospice unit on 10/01/2018 and was started on a Dilaudid drip at 0.5 mg per hour for pain and respiratory distress, which was subsequently titrated to 1.5 mg per hour. He also has been having excess secretion for which he has been receiving receiving atropine 2% drops sublingual every 2 hours as needed, which he has been receiving every 2 hours as well as suctioning periodically. He had also been started on a scopolamine patch as well as ordered IV glycopyrrolate 0.2 mg every 4 hours as needed. He did have all other comfort medications in place such as Lorazepam 0.5 mg every 2 hours as needed as well as Tylenol suppository. The patient subsequently on 10/02/2018 and was pronounced at 1859. Dictated By: NELSON WATKINS MD PK/NTS Conf#: [id number] DID#: [id number] CC: ANA PLAZA MD;*EndCC* MTDD
== END 2018-10-02 18:59 | disposition expired | DRG 374 ==
LOC: E/R 20:31 → MS1 22:44
PROVIDERS: ADMIT Internal Medicine; ATTEND Internal Medicine
DX: C18.9 Malignant neoplasm of colon, unspecified (principal); R65.11 Systemic inflammatory response syndrome (SIRS) of non-infectious origin with acute organ dysfunction; C78.6 Secondary malignant neoplasm of retroperitoneum and peritoneum; C78.7 Secondary malignant neoplasm of liver and intrahepatic bile duct; C78.00 Secondary malignant neoplasm of unspecified lung; R18.0 Malignant ascites; N17.9 Acute kidney failure, unspecified; N13.1 Hydronephrosis with ureteral stricture, not elsewhere classified; N40.0 Benign prostatic hyperplasia without lower urinary tract symptoms; E03.9 Hypothyroidism, unspecified; I48.91 Unspecified atrial fibrillation; Z90.49 Acquired absence of other specified parts of digestive tract; Z79.01 Long term (current) use of anticoagulants; Z66 Do not resuscitate; E83.9 Disorder of mineral metabolism, unspecified; Z51.5 Encounter for palliative care
CPT/HCPCS: 36415; 74176; 76775; 80048; 80053; 81001; 82436; 83690; 83735; 84100; 84133; 84300; 84484; 85025; 85610; 85730; 93005; 94640; 94664; 96360; J1170; J2060; J2405; J7030; J7042